=== PATIENT | male | born 1950 | race African-American/Black ===

== ENCOUNTER 2019-01-11 12:51 | Emergency (ER) | payer OTHER, MEDICAID ==
[~2019-01-11] VITALS: Ht 172.7 cm; Wt 84.0 kg
[~2019-01-11 12:51] MED LIST: AMLO10TA80 PO; ASPI-1393 PO; ATOR-2 PO; FURO40TA5 PO
[2019-01-11 12:53] VITALS: BP 134/61
[2019-01-11] MEDS ORDERED: ACETAMINOPHEN 325MG TABLET PO STA (13:25)
== END 2019-01-11 14:29 | disposition home or self-care (01) ==
LOC: ER 12:51
DX: R07.89 Other chest pain (principal); R51 Headache; R10.9 Unspecified abdominal pain; G89.11 Acute pain due to trauma; V49.40XA Driver injured in collision with unspecified motor vehicles in traffic accident, initial encounter; Y93.89 Activity, other specified; Y92.410 Unspecified street and highway as the place of occurrence of the external cause
CPT/HCPCS: 71045; 99283